=== PATIENT | female | born 1985 | race Caucasian/White ===

== ENCOUNTER → 2016-07-25 | Outpatient (CLI) | payer MEDICAID ==
[~2016-07-25] MED LIST: ACHYD1T PO; AGM875T PO; ALBU8.5H2 IH; ALPR0.5T PO; AMOX500C2 PO; AMOX875T2 PO; AZIT-21 PO; BENZ-13 PO; BIRTH CONTROL PO; CLOT45CR46 TOP; D-ME118S33 PO; DCS100C PO; DIET75TA31 PO; FLUC100T PO; FLUC200T45 PO; Flexeril PO; GUAI120L29 PO; HYDR-2856 PO; HYDR-3720 PO; IBP600T1 PO; Ibuprofen PO; LEVO500T69 PO; MINO100C2 PO; NAPR-243 PO; NAPR500T PO; NITR100C3 PO; NITR50CA4 PO; NS.65NA45; OMEP20CA6 PO; ONDN4T PO; OSLT75CRX PO; OXYC-197 PO; PANT40TA2 PO; PHEN100T26 PO; PHEN200T27 PO; PNT40TEC PO; PRCD5U PO; PRD20T PO; PRED20TA PO; PSEU120T50 PO; SUCR1TAB23 PO; SULF1TAB34 PO; SULF1TAB35 PO; SULF1TAB38 PO; TRAM50TA2 PO; TRM50T PO
--- NOTE | 2016-07-25 22:46 | Diagnostic Imaging Report ---
EXAMINATION: Bilateral breast ultrasound. INDICATION: Family history of breast cancer. COMPARISON: 07/07/15. FINDINGS: The retroareolar region and the four quadrants of each breast were scanned. There is minimal duct ectasia in the retroareolar region of the right breast with no other abnormality seen. IMPRESSION: Essentially negative exam. No suspicious lesion. ACR BI-RADS Category 2: Benign findings. Result letter will be mailed to the patient. Note: At least 10% of breast cancer is not imaged by mammography. Dictated by: Dictated on workstation # [id number]
== END ==
LOC: RAD 09:43
PROVIDERS: ATTEND Nurse Practitioner Family
DX: R92.8 Other abnormal and inconclusive findings on diagnostic imaging of breast (principal); Z80.3 Family history of malignant neoplasm of breast

== ENCOUNTER → 2016-08-20 | Outpatient (CLI) | payer MEDICAID ==
[~2016-08-20] MED LIST changes: +BARIUM SUSPENSION 105% (LIQUID POLIBAR PLUS) 240 ML/DOSE PO ONE; +BARIUM SUSPENSION 60% (LIQUID EZ PAQUE) 240 ML DOSE PO ONE
--- NOTE | 2016-08-20 11:55 | Diagnostic Imaging Report ---
EXAMINATION: Barium swallow double-contrast. INDICATION: Dysphagia Fluoroscopy time: 26 seconds TECHNIQUE: Decorator Consultant image of the chest was performed. Subsequently, the patient was given gas forming granules for oral ingestion followed by thick and thin barium to drink. Swallowing through the esophagus was observed with fluoroscopy and overhead images, as well as multiple spot images in the upright and prone positions, were taken. FINDINGS: Decorator Consultant image of the chest demonstrate no significant abnormality. No significant reflux is seen during the study. Normal motility seen. The esophagus is normal in caliber and contour. There is no mucosal abnormality, diverticulum or filling defect to suggest a mass. There is no hiatal hernia demonstrated. IMPRESSION: Unremarkable barium swallow. Dictated by: Dictated on workstation # [id number]
== END ==
LOC: RAD 10:44
PROVIDERS: ATTEND Nurse Practitioner Family
DX: R13.13 Dysphagia, pharyngeal phase (principal)
CPT/HCPCS: 74220

== ENCOUNTER 2016-09-06 05:43 | Outpatient (CLI) | payer MEDICAID ==
[~2016-09-06] VITALS: Ht 157.5 cm; Wt 81.9 kg
[~2016-09-06 05:43] MED LIST changes: -BARIUM SUSPENSION 105% (LIQUID POLIBAR PLUS) 240 ML/DOSE PO ONE; -BARIUM SUSPENSION 60% (LIQUID EZ PAQUE) 240 ML DOSE PO ONE; -PANT40TA2 PO
== END 2016-09-06 16:22 ==
LOC: PREOP 05:43
PROVIDERS: ATTEND Surgery
DX: Z01.818 Encounter for other preprocedural examination (principal); R13.14 Dysphagia, pharyngoesophageal phase

== ENCOUNTER 2016-09-10 07:56 | Day surgery (SDC) | payer MEDICAID ==
[~2016-09-10] VITALS: Ht 157.5 cm; Wt 81.9 kg
[2016-09-10] MEDS ORDERED: FLUMAZENIL (ROMAZICON) 0.1 MG/ML 5 ML VIAL INJ PRN (08:15)
[2016-09-10] MEDS ORDERED: NS IV 500 ML 500 ML IV ONE (08:15)
[2016-09-10] MEDS ORDERED: NALOXONE 0.4 MG/ML 1 ML (NARCAN) VIAL IVP PRN (08:15)
[2016-09-10 08:20] VITALS: BP 124/71
--- NOTE | 2016-09-10 08:29 | Conscious Sedation/ASA ---
Conscious Sedation Pre-Proced ASA Class: 2 Airway Mallampati Classification: ([place] appropriate class) I. II. III, IV Lungs Heart ASA score ASA 1: a normal healthy patient ASA 2: a patient with a mild systemic disease (mid diabetes, controlled hypertension, obesity ASA 3: a patient with a severe systemic disease that limits activity (angina , COPD, prior Myocardial infarction) ASA 4: a patient with an incapacitating disease that is a constant threat to life (CHF, renal failure) ASA 5: a moribund patient not expected to survive 24 hrs. (ruptured aneurysm) ASA 6: a declared brain patient whose organs are being harvested. For emergent operations, add the letter E after the classification Grade 2 Sedation Plan: Discussed options with patient/fam Note The patient is an appropriate candidate to undergo the planned procedure, sedation, and anesthesia. The patient immediately re-assessed prior to indication. KRISTIE GRACE MD Sep 10, 2016 8:28 am
[2016-09-10] MEDS ORDERED: MIDAZOLAM 2 MG/2 ML (VERSED) VIAL ONE ×4 (09:59→10:00)
[2016-09-10] MEDS ORDERED: fentaNYL INJECTION 100 MCG/2 ML AMP ONE (09:59)
[2016-09-10] MEDS ORDERED: HURRICAINE EXT TUBE (BENZOCAINE) ONE (10:00)
[2016-09-10] MEDS: fentaNYL INJECTION 100 MCG/2 ML AMP IVP PRN ×2 (10:06→10:08)
[2016-09-10] MEDS: MIDAZOLAM 2 MG/2 ML (VERSED) VIAL IVP PRN ×4 (10:07→10:13)
--- NOTE | 2016-09-10 10:20 | Endoscopy Procedure Report ---
Endoscopy Report Date: Sep 10, 2016 Preoperative Diagnosis: dysphagia Study Performed: Upper Endoscopy Procedure Instrument: Endoscope Endo Procedure/Findings Findings 1.: Hiatal Hernia, Stricture Recommendations: Recommendations: 1.: Prescription for Copy Copies To 1: SYDNEY CLARK XAVIER M MD Sep 10, 2016 10:20 am
[2016-09-10] MEDS ORDERED: PANT40TA2 PO (10:21)
--- NOTE | 2016-09-10 10:22 | Discharge Inst-Simple/Standard ---
Discharge Inst-Standard Discharge Medications New, Converted or Re-Newed RX: RX on Chart Patient Instructions/Follow Up Plan of Care/Instructions/FU: follow-up with her primary Activity as Tolerated: Yes Discharge Diet: No Restrictions KRISTIE GRACE MD Sep 10, 2016 10:22 am
[2016-09-10 10:45] VITALS: BP 115/74
[2016-09-10] MEDS ORDERED: HURRICAINE EXT TUBE (BENZOCAINE) XX ONE (10:45)
[2016-09-10 11:15] VITALS: BP 110/60
[2016-09-10 11:24] VITALS: BP 110/60
--- NOTE | 2016-09-10 12:40 | OPERATIVE REPORT ---
PROCEDURE PHYSICIAN: KRISTIE GRACE DATE OF PROCEDURE: 09/10/2016 PROCEDURES: 1. Upper GI endoscopy. 2. Balloon dilatation of esophageal stricture. SURGEON: Dr. Grace. INDICATION FOR THE PROCEDURE: This lady came in for an upper endoscopy to evaluate progressive dysphagia. In addition, she also reported symptoms of reflux disease. Informed consent was obtained after reviewing the procedure in detail. DESCRIPTION OF PROCEDURE: She was placed in left lateral decubitus position and her vital signs were monitored. Conscious sedation was achieved using Versed and fentanyl. The flexible gastroscope was then introduced into down the esophagus, past the stomach, into the proximal duodenum. FINDINGS: ESOPHAGUS: Hiatal hernia with a peptic stricture at the distal end. It was dilated to 20 mm with a balloon. STOMACH AND DUODENUM: Were normal. She tolerated the procedure well and was taken back to the nursing area in a stable condition. IMPRESSION: 1. Dysphagia due to a peptic stricture. 2. Balloon dilatation completed. 3. To continue proton pump inhibitor therapy. Job ID: [id number] Dictated Date: 09/10/2016 10:18:49 Garde Manger Date: 09/10/2016 12:37:58 / joseline DHILLON
== END 2016-09-10 11:25 | disposition home or self-care (01) ==
LOC: ENDO 07:56
PROVIDERS: ATTEND Surgery
DX: K22.2 Esophageal obstruction (principal); K44.9 Diaphragmatic hernia without obstruction or gangrene

== ENCOUNTER 2017-09-24 17:34 | Emergency (ER) | payer MEDICAID, OTHER ==
[~2017-09-24] VITALS: Ht 157.5 cm; Wt 81.6 kg
[~2017-09-24 17:34] MED LIST changes: +NAPR-1071 PO; -NAPR500T PO; +PANT40TA2 PO
--- OUTSIDE RECORDS SUMMARY | 2017-09-24 17:40 | XMS REPORT ---
Author Author RUBY VARGAS [facility] Address [address] [place] [address] Care Team Providers Care Prospect Manager Name Role Phone RUBY VARGAS Unavailable PROBLEMS Type Condition ICD9-CM Code PEF34-HI Code Onset Dates Condition Status SNOMED Code Problem Mixed hyperlipidemia E78.2 Active 249719642 Problem Pharyngeal dysphagia R13.13 Active 97205294399505 Problem Depression, unspecified depression type F32.9 Active 14261533 Problem History of vitamin D deficiency Z86.39 Active 809847659 Problem Abnormal ultrasound of breast R92.8 Active 16209795965294541 Problem Family history of breast cancer in mother Z80.3 Active 890040996 ALLERGIES Substance Reaction Event Type Date Status Levofloxacin Unknown Drug Allergy Jul, Active SOCIAL HISTORY Never Assessed PLAN OF CARE Activity Details Follow Up 4 Weeks Reason:dysphagia VITAL SIGNS Height 62 in 2016-08-15 Weight 194.0 lbs 2016-08-15 Temperature 98.1 degrees Fahrenheit 2016-08-15 Heart Rate 78 bpm 2016-08-15 BMI 35.48 kg/m2 2016-08-15 Blood pressure systolic 128 mmHg 2016-08-15 Blood pressure diastolic 78 mmHg 2016-08-15 MEDICATIONS Medication Instructions Dosage Frequency Start Date End Date Duration Status Omeprazole 20 MG Orally Once a day 1 capsule 24h Nov, 30 day(s ) Active Cholecalciferol 76045 UNIT Orally once weekly 1 capsule Feb, Active Flonase 50 MCG/ACT Nasally 2 times a day 1 spray in each nostril 12h Oct Active RESULTS Name Result Date Reference Range UA LONG DIP (IN HOUSE) 2016-08-15 Lot # [id number] Exp date Clarity Clear Color Yellow Odor None GLU Negative SEBASTIAN Negative KET Negative SG 1.025 BLO Negative pH 5.5 Protein Negative URO 0.2 NIT Negative SHRUTHI Negative Lot # Exp date TSH 2016-08-15 TSH 2.940 0.450-4.500 LIPID PANEL 2016-08-15 Cholesterol, Total 260 100-199 Triglycerides 235 0-149 HDL Cholesterol 46 >39 VLDL Cholesterol Danish 47 5-40 LDL Cholesterol Calc 167 0-99 Comment: Barium Swallow 2016-08-20 PROCEDURES Procedure Date Ordered Result Body Site URINALYSIS, AUTO, W/O SCOPE August 15, 2016 LAB NOT BILLED BY [facility] August 15, 2016 VENIPUNCT, ROUTINE* August 15, 2016 IMMUNIZATIONS No Known Immunizations MEDICAL (GENERAL) HISTORY Type Description Date Medical History Esophageal reflux Medical History Esophageal reflux Medical History Calculus of kidney Medical History Cyst of left breast Surgical History gallbladder removal 2011 Surgical History hysterectomy 10/2013 Surgical History D&C 11/2012 Surgical History lithotripsy
--- OUTSIDE RECORDS SUMMARY | 2017-09-24 17:40 | XMS REPORT ---
Author Author RUBY VARGAS [facility] Address [address] [place] [address] Care Team Providers Care Brazing Machine Tender Name Role Phone RUBY VARGAS Unavailable PROBLEMS Type Condition ICD9-CM Code [id number] Code Onset Dates Condition Status SNOMED Code Problem Mixed hyperlipidemia E78.2 Active 603355822 Problem Pharyngeal dysphagia R13.13 Active 65798028512379 Problem Depression, unspecified depression type F32.9 Active 77295671 Problem History of vitamin D deficiency Z86.39 Active 299345687 Problem Abnormal ultrasound of breast R92.8 Active 71921889862867601 Problem Family history of breast cancer in mother Z80.3 Active 328129483 ALLERGIES Substance Reaction Event Type Date Status Levofloxacin Unknown Drug Allergy Jun, Active SOCIAL HISTORY Never Assessed PLAN OF CARE Activity Details Follow Up pending ua in 2 weeks or if SPARKS not improving Reason: VITAL SIGNS Height 62 in 2016-07-17 Weight 197.5 lbs 2016-07-17 Temperature 97.7 degrees Fahrenheit 2016-07-17 Heart Rate 72 bpm 2016-07-17 Respiratory Rate 18 2016-07-17 BMI 36.12 kg/m2 2016-07-17 Blood pressure systolic 119 mmHg 2016-07-17 Blood pressure diastolic 76 mmHg 2016-07-17 MEDICATIONS Medication Instructions Dosage Frequency Start Date End Date Duration Status Diflucan 150 MG Orally Once a day 1 tablet 24h Jun, 1 dose Active RESULTS Name Result Date Reference Range UA LONG DIP (IN HOUSE) 2016-07-17 Lot # [id number] Exp date Clarity Clear Color Yellow Odor None GLU Negative SEBASTIAN Negative KET Negative SG 1.025 BLO 1+ pH 5.0 Protein Negative URO 0.2 NIT Negative SHRUTHI Negative Lot # Exp date Ultrasound : Breast(s), Both 2016-07-25 PROCEDURES Procedure Date Ordered Result Body Site URINALYSIS, AUTO, W/O SCOPE Jul 17, 2016 THER/PROPH/DIAG INJ, SC/IM Jul 17, 2016 TORADOL (IM) 60 MG/2ML (UP TO 15 MG) Jul 17, 2016 IMMUNIZATIONS Vaccine Route Administration Date Status TORADOL (IM) 60 MG/2ML (UP TO 15 MG) IM Intramuscular Jul 17, 2016 Administered MEDICAL (GENERAL) HISTORY Type Description Date Medical History Esophageal reflux Medical History Esophageal reflux Medical History Calculus of kidney Medical History Cyst of left breast Surgical History gallbladder removal 2011 Surgical History hysterectomy 10/2013 Surgical History D&C 11/2012 Surgical History lithotripsy
--- OUTSIDE RECORDS SUMMARY | 2017-09-24 17:40 | XMS REPORT ---
Author Author RUBY VARGAS [facility] Address [address] [place] [address] Care Team Providers Care Fur Repairer Name Role Phone RUBY VARGAS Unavailable PROBLEMS Type Condition ICD9-CM Code [id number] Code Onset Dates Condition Status SNOMED Code Problem Mixed hyperlipidemia E78.2 Active 212247450 Problem Pharyngeal dysphagia R13.13 Active 27043820680490 Problem Depression, unspecified depression type F32.9 Active 46819767 Problem History of vitamin D deficiency Z86.39 Active 205986108 Problem Abnormal ultrasound of breast R92.8 Active 82837405937795652 Problem Family history of breast cancer in mother Z80.3 Active 532595920 ALLERGIES No Information SOCIAL HISTORY Never Assessed PLAN OF CARE VITAL SIGNS MEDICATIONS Medication Instructions Dosage Frequency Start Date End Date Duration Status Fish Oil 1000 MG Orally at bedtime 2 capsules Jul, 30 days Active RESULTS No Results PROCEDURES No Known procedures IMMUNIZATIONS No Known Immunizations MEDICAL (GENERAL) HISTORY Type Description Date Medical History Esophageal reflux Medical History Esophageal reflux Medical History Calculus of kidney Medical History Cyst of left breast Surgical History gallbladder removal 2011 Surgical History hysterectomy 10/2013 Surgical History D&C 11/2012 Surgical History lithotripsy
--- NOTE | 2017-09-24 19:33 | ED Integumentary General ---
General Chief Complaint: Skin/Wound Problems Stated Complaint: SUNBURN Nursing Triage Note: pt c/o sun exposure Saturday et Saturday. Batres to arms, face et legs. c/o blisters, nausea, et headaches. Source: patient Exam Limitations: no limitations History of Present Illness Date Seen by Provider: September 24, 2017 Time Seen by Provider: 19:14 Initial Comments Here with report of sunburn to her face and anterior legs. She was sitting at a softball game on Saturday and Saturday in shorts. She reports wearing 50 block sunscreen to those areas and noted batres on Saturday night. Concerned because she has swelling and pain to those areas. She's been using aloe vera as well as Tylenol and ibuprofen and that is only helping a little. She had spoken with somebody else and they are was some concern about possibility for infection. Timing/Duration: getting worse, other (3-4 days ago) Severity: moderate Location: face, extremities Possible Cause: other (sunburn) Associated Symptoms: blisters, edema, flushing Allergies and Home Medications Allergies Coded Allergies: levofloxacin (Unverified Allergy, Intermediate, 08/26/13) RASH AND ITCHING morphine (Unverified Adverse Reaction, Mild, NAUSEA, 08/26/13) Home Medications Pantoprazole Sodium 40 Mg Tablet.dr, 40 MG PO DAILY Prescribed by: KRISTIE GRACE on 09/10/16 1021 Patient Home Medication List Home Medication List Reviewed: Yes Constitutional: see HPI; No chills, No fever Respiratory: no symptoms reported Cardiovascular: no symptoms reported Gastrointestinal: no symptoms reported Skin: see HPI, change in color, lesions Past Zspfzwz-Jbwhwq-Dwgwnx Hx Past Med/Social Hx: Reviewed Nursing Past Med/Soc Hx Patient Social History Alcohol Use: Denies Use Recreational Drug Use: No Smoking Status: Former Smoker Former Smoker, Quit: Sep 06, 2001 Recent Foreign Travel: No Contact w/Someone Who Travel: No Recent Infectious Disease Expo: No Recent Hopitalizations: No Seasonal Allergies Seasonal Allergies: Yes Past Medical History Surgeries: Yes Breast, Gallbladder, Hysterectomy Reproductive Disorders: No Female Reproductive Disorders: Denies, Endometriosis, Ovarian Cyst GRIPS History: Hysterectomy HIV/AIDS: No Genitourinary: Yes Kidney Stones, UTI-Chronic Gastrointestinal: Yes Gastroesophageal Reflux Adverse Reaction/Blood Tranf: No Family Medical History Reviewed Nursing Family Hx Cancer 19 MOTHER (BREAST ) Family history: Hypertension G8 BROTHER No Pertinent Family Hx Physical Exam Vital Signs Vital Signs - First Documented 09/24/17 18:39 Temp 95.4 Pulse 80 Resp 18 B/P (MAP) 140/82 (101) Capillary Refill : Less Than 3 Seconds General Appearance: WD/WN, no apparent distress HEENT: other (sunburn to the forehead and face noted with dryness and healing blister to the nose and forehead. Mild swelling noted. Consistent with first- degree burn.) Neck: full range of motion, supple Cardiovascular: regular rate, rhythm, no murmur Respiratory: lungs clear, normal breath sounds Extremities: normal range of motion, swelling (sunburn noted to the lower extremities anterior portion from mid thighs down to ankles. No blistering noted. Mild swelling noted.), other Neurologic/Psychiatric: alert, oriented x 3 Skin: warm/dry, other (erythema and sunburn as noted above to areas as discussed above) Progress/Results/Core Measures Vital Signs/I&O 09/24/17 18:39 Temp 95.4 Pulse 80 Resp 18 B/P (MAP) 140/82 (101) Blood Pressure Mean: 101 Progress Note : Progress Note Seen and evaluated. Discussed sunburn and therapy. Discharged home with return precautions. Patient verbalize understanding instructions and agreement with plan. Departure Impression Primary Impression: Sunburn of first degree Disposition: 01 HOME, SELF-CARE Condition: Stable Departure-Patient Inst. Decision time for Depature: 19:32 Referrals: SYDNEY CLARK DO (PCP) Primary Care Physician RUBY VARGAS (Family) Primary Care Physician Patient Instructions: [place] (DC) Add. Discharge Instructions: All discharge instructions reviewed with patient and/or family. Voiced understanding. You may continue aloe vera gel to areas of concern as needed. You may take ibuprofen 800 mg every 8 hours as needed for pain. You may take Tylenol/ acetaminophen 1000 mg every 8 hours as needed for pain. Drink plenty of fluids. Elevate legs when possible. This should heal over the next week to 2 weeks. You will peel. Return for worse pain, fever, vomiting, weakness, breathing problems or other concerns as needed. It is very important that he protect herself from further sunburns using high-quality sunblock or cover with clothing. MANJULA FLETCHER MD September 24, 2017 19:33
[2017-09-24 19:36] VITALS: BP 0/0
== END 2017-09-24 19:36 | disposition home or self-care (01) ==
LOC: EDUNIT# 17:34 → ER 17:36
DX: L55.0 Sunburn of first degree (principal); K21.9 Gastro-esophageal reflux disease without esophagitis; Z87.442 Personal history of urinary calculi; Z88.1 Allergy status to other antibiotic agents; Z88.5 Allergy status to narcotic agent; Z87.891 Personal history of nicotine dependence; Z90.710 Acquired absence of both cervix and uterus; Z80.3 Family history of malignant neoplasm of breast
CPT/HCPCS: 99282

== ENCOUNTER → 2018-03-28 | Outpatient (CLI) | payer OTHER ==
[~2018-03-28] MED LIST changes: -BENZ-13 PO; +BENZ100C18 PO; -OXYC-197 PO; +OXYC1TAB87 PO
--- NOTE | 2018-03-28 17:34 | Diagnostic Imaging Report ---
INDICATION: Routine screening. No prior mammograms are available for comparison. This is a baseline study. 2-D and 3-D bilateral screening mammography was performed with computer-aided detection (CAD) system. FINDINGS: Scattered fibroglandular densities are identified bilaterally. Postsurgical changes in the retroareolar left breast are noted. No mass or malignant-appearing microcalcifications are seen. Axillae are unremarkable. IMPRESSION: No mammographic features suspicious for malignancy are identified. ACR BI-RADS Category 2: Benign findings. Result letter will be mailed to the patient. Note: At least 10% of breast cancer is not imaged by mammography. Dictated by: Dictated on workstation # [id number]
== END ==
LOC: RAD 11:12
PROVIDERS: ATTEND Nurse Practitioner Primary Care
DX: Z12.31 Encounter for screening mammogram for malignant neoplasm of breast (principal)
CPT/HCPCS: 77067

== ENCOUNTER 2018-04-11 06:13 | Outpatient (CLI) | payer OTHER ==
[~2018-04-11] VITALS: Ht 157.5 cm; Wt 90.7 kg
[2018-04-11] MEDS ORDERED: CHOL500049 PO (14:45)
[2018-04-11] MEDS ORDERED: TAMS0.4C2 PO (14:45)
[2018-04-11] MEDS ORDERED: RANI150T46 PO (14:45)
[2018-04-11] MEDS ORDERED: PHEN37.53 PO (14:45)
[2018-04-11] MEDS ORDERED: SULF1TAB35 PO (14:45)
== END 2018-04-11 14:52 | disposition home or self-care (01) ==
LOC: PREOP 06:13
PROVIDERS: ATTEND Urology
DX: Z01.818 Encounter for other preprocedural examination (principal)

== ENCOUNTER 2018-04-15 07:39 | Day surgery (SDC) | payer OTHER ==
[~2018-04-15] VITALS: Ht 157.5 cm; Wt 90.7 kg
[~2018-04-15 07:39] MED LIST changes: +CHOL500049 PO; +PHEN37.53 PO; +RANI150T46 PO; +TAMS0.4C2 PO
[2018-04-15 08:00] VITALS: BP 137/81
[2018-04-15] MEDS ORDERED: CATHETER FLUSH 10 ML SYR IV PRN (08:00)
[2018-04-15] MEDS ORDERED: cefTRIAXone FOR IV USE 1,000 MG in NS (IVPB) 50 ML IV ONE (08:00)
--- OUTSIDE RECORDS SUMMARY | 2018-04-15 08:02 | XMS REPORT ---
Author Author KIP ROJAS [facility] Address [address] [place] [address] Care Team Providers Care Windchill Administrator Name Role Phone KIP ROJAS Unavailable PROBLEMS Type Condition ICD9-CM Code LBA90-MI Code Onset Dates Condition Status SNOMED Code Problem Depression, unspecified depression type F32.9 Active 56317432 Problem Thyroiditis E06.9 Active 90605468 Problem Vitamin D deficiency E55.9 Active 68801340 Problem Gastroesophageal reflux disease, esophagitis presence not specified K21.9 Active 255889045 Problem Abnormal ultrasound of breast R92.8 Active 34793605755479802 Problem Family history of breast cancer in mother Z80.3 Active 429631595 Problem Mixed hyperlipidemia E78.2 Active 483604843 Problem Pharyngeal dysphagia R13.13 Active 56216176693697 ALLERGIES No Information ENCOUNTERS Encounter Location Date Diagnosis [place] [id number] [address] Feb, Thyroiditis E06.9 [facility] [id number] [place] [address] Feb, Vitamin D deficiency E55.9 [facility] [id number] [place] [address] Feb, [facility] [id number] [place] [address] Feb, [facility] [id number] [place] [address] Feb, Vitamin D deficiency E55.9 and Thyroid pain E07.89 [facility] [id number] [place] [address] Feb, Screening for breast cancer Z12.31 ; Weight loss counseling , encounter for Z71.3 ; Vitamin D deficiency E55.9 ; Screening for thyroid disorder Z13.29 ; Screening for diabetes mellitus Z13.1 ; Thyroid pain E07.89 ; Gastroesophageal reflux disease, esophagitis presence not specified K21.9 and Depression, unspecified depression type F32.9 [place] [id number] [place] [address] Dec, [address] [address] Dec, Left foot pain M79.[address] [address] Jul, Pharyngeal dysphagia R13.[address] [address] Jul, Mixed hyperlipidemia E78.[address] [address] Jul, Hematuria R31.9 ; History of renal calculi Z87.442 ; Heartburn R12 ; Pharyngeal dysphagia R13.13 and General medical exam Z00.[address] [address] Jun, Dysuria R30.0 ; Headache around the eyes R51 ; Hematuria R31.9 ; History of renal calculi Z87.442 ; Change in vision H53.9 ; Family history of breast cancer in mother Z80.3 and Abnormal ultrasound of breast R92.8 [place] [id number] [place] [address] Feb, Depression, unspecified depression type F32.[address] [address] Feb, [address] [address] Feb, Depression, unspecified depression type F32.9 [place] [address] [place] [address] Feb, Hair loss L65.9 ; Fatigue, unspecified type R53.83 ; Depression, unspecified depression type F32.9 and History of vitamin D deficiency Z86.39 [facility] [address] [place] [address] Nov, [facility] [address] [place] [address] Jun, [facility] [id number] [address] May, Family history of breast cancer in mother V16.3 [place] [id number] [place] [address] Jan, Weight gain 783.1 [place] [address] [address] Dec, Weight gain 783.1 [facility] [id number] [place] [address] Nov, Family history of breast cancer in mother V16.3 [place] [address] [address] Nov, Family history of breast cancer V16.3 [facility] [address] [address] Nov, Family history of breast cancer in mother V16.3 and Weight gain 783.1 [facility] [address] [address] Nov, [place] [id number] [address] Nov, [facility] [address] [address] Nov, [facility] [address] [place] [address] Nov, Heart burn 787.1 ; Arthralgia 719.40 ; Weight gain 783.1 and Fatigue 780.79 [facility] [id number] [place] [address] Oct, Sinusitis 473.9 and Otalgia of right ear 388.70 [facility] [id number] [place] [address] Aug, [facility] [id number] [place] [address] Aug, [facility] [id number] [place] [address] Jul, [facility] [id number] [place] [address] Jul, [facility] [id number] [place] [address]- [address] Jul, [facility] [id number] [place] [address] Jul, [facility] [id number] [place] [address] May, [facility] [id number] [place] [address] May, [facility] [id number] [place] [address] Apr, [facility] [id number] [place] [address] Apr, [facility] [id number] [place] [address] Mar, [facility] [id number] [place] [address] Mar, IMMUNIZATIONS No Known Immunizations SOCIAL HISTORY Never Assessed REASON FOR VISIT Refill request PLAN OF CARE VITAL SIGNS MEDICATIONS Medication Instructions Dosage Frequency Start Date End Date Duration Status Cholecalciferol 75457 UNIT 1 tablet Feb, May, 30 day( s) Active RESULTS No Results PROCEDURES No Known procedures INSTRUCTIONS MEDICATIONS ADMINISTERED No Known Medications MEDICAL (GENERAL) HISTORY Type Description Date Medical History esophageal stricture Medical History Esophageal reflux Medical History Calculus of kidney Medical History Cyst of left breast Surgical History gallbladder removal 2011 Surgical History hysterectomy 10/2013 Surgical History D&C 11/2012 Surgical History lithotripsy Surgical History esophageal stricture- stretching; Dr. Witt
--- OUTSIDE RECORDS SUMMARY | 2018-04-15 08:02 | XMS REPORT ---
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 Phone KIP ROJAS Unavailable PROBLEMS Type Condition ICD9-CM Code [id number] Code Onset Dates Condition Status SNOMED Code Problem Depression, unspecified depression type F32.9 Active 22162319 Problem Thyroiditis E06.9 Active 83574977 Problem Vitamin D deficiency E55.9 Active 36389238 Problem Gastroesophageal reflux disease, esophagitis presence not specified K21.9 Active 026848135 Problem Abnormal ultrasound of breast R92.8 Active [id number] Problem Family history of breast cancer in mother Z80.3 Active 599197874 Problem Mixed hyperlipidemia E78.2 Active 426534679 Problem Pharyngeal dysphagia R13.13 Active [id number] ALLERGIES No Information ENCOUNTERS Encounter Location Date Diagnosis [place] [address] [address] Feb, Thyroiditis E06.9 [facility] [id number] [place] [address] 64900- 7979 Feb, Vitamin D deficiency E55.9 [facility] [id number] [place] [address] 51761- 8605 Feb, [facility] [id number] [place] [address] 46867- 0649 Feb, [facility] [id number] [place] [address] 23954- 2029 Feb, Vitamin D deficiency E55.9 and Thyroid pain E07.89 [facility] [id number] [place] [address] 39790- 0060 Feb, Screening for breast cancer Z12.31 ; Weight loss counseling , encounter for Z71.3 ; Vitamin D deficiency E55.9 ; Screening for thyroid disorder Z13.29 ; Screening for diabetes mellitus Z13.1 ; Thyroid pain E07.89 ; Gastroesophageal reflux disease, esophagitis presence not specified K21.9 and Depression, unspecified depression type F32.9 [place] [id number] [place] [address] 66372- 5237 Dec, [address] [address]- 7862 Dec, Left foot pain M79.[address] 53263- 4018 Jul, Pharyngeal dysphagia R13.[address] 28696- 2223 Jul, Mixed hyperlipidemia E78.[address] 48729- 2631 Jul, Hematuria R31.9 ; History of renal calculi Z87.442 ; Heartburn R12 ; Pharyngeal dysphagia R13.13 and General medical exam Z00.[address] 6[address]36- 3484 Jun, Dysuria R30.0 ; Headache around the eyes R51 ; Hematuria R31.9 ; History of renal calculi Z87.442 ; Change in vision H53.9 ; Family history of breast cancer in mother Z80.3 and Abnormal ultrasound of breast R92.8 [place] [id number] [place] [address] 04694- 0283 Feb, Depression, unspecified depression type F32.[address] 86523- 4567 Feb, [address] 23884- 3244 Feb, Depression, unspecified depression type F32.9 [place] [address] [place] [address] 48[address] Feb, Hair loss L65.9 ; Fatigue, unspecified type R53.83 ; Depression, unspecified depression type F32.9 and History of vitamin D deficiency Z86.39 [facility] [address] [address] Nov, [facility] [address] [address] Jun, [facility] [id number] [address] 9559 May, Family history of breast cancer in mother V16.3 [place] [id number] [place] [address] 029997- 8966 Jan, Weight gain 783.1 [place] [address], [place] [address]- 6076 Dec, Weight gain 783.1 [facility] [address] [place] [address] 75048- 6510 Nov, Family history of breast cancer in mother V16.3 [place] [address], [place] [address] 0897 Nov, Family history of breast cancer V16.3 [facility] [address], [place] [address]- 8974 Nov, Family history of breast cancer in mother V16.3 and Weight gain 783.1 [facility] [address], [place] [address]- 9223 Nov, [place] [address] [id number] [address]- 8191 Nov, [facility] [address] [address] Nov, [facility] [address], [place] [address]- 7432 Nov, Heart burn 787.1 ; Arthralgia 719.40 ; Weight gain 783.1 and Fatigue 780.79 [facility] [id number] [place] [address] 75726- 7989 Oct, Sinusitis 473.9 and Otalgia of right ear 388.70 [facility] [id number] [place] [address] 86906- 4851 Aug, [facility] [address] [id number] [place] [address] 08209- 7574 Aug, [facility] [address] [id number] [place] [address] 74287- 8832 Jul, [facility] [address] [id number] [place] [address] 148244- 0465 Jul, [facility] [address] [id number] [place] [address] 79085- 4760 Jul, [facility] [address] [id number] [place] [address] 058299- 3622 Jul, [facility] [address] [id number] [place] [address] 78533- 8649 May, [facility] [id number] [place] [address] 765081- 6019 May, [facility] [id number] [place] [address] 02713- 8168 Apr, [facility] [id number] [place] [address] 462374- 3515 Apr, [facility] [address] [id number] [place] [address] 70250- 0786 Mar, [facility] [id number] [place] [address] 903101- 9367 Mar, IMMUNIZATIONS No Known Immunizations SOCIAL HISTORY Never Assessed REASON FOR VISIT PLAN OF CARE VITAL SIGNS MEDICATIONS Unknown Medications RESULTS No Results PROCEDURES No Known procedures [...]
--- OUTSIDE RECORDS SUMMARY | 2018-04-15 08:02 | XMS REPORT ---
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 Phone KIP ROJAS Unavailable PROBLEMS Type Condition ICD9-CM Code [id number] Code Onset Dates Condition Status SNOMED Code Problem Depression, unspecified depression type F32.9 Active 26243041 Problem Thyroiditis E06.9 Active 42165767 Problem Vitamin D deficiency E55.9 Active 62425057 Problem Gastroesophageal reflux disease, esophagitis presence not specified K21.9 Active 768459483 Problem Abnormal ultrasound of breast R92.8 Active 78744869534873927 Problem Family history of breast cancer in mother Z80.3 Active 870331935 Problem Mixed hyperlipidemia E78.2 Active 364486543 Problem Pharyngeal dysphagia R13.13 Active [id number] ALLERGIES No Information ENCOUNTERS Encounter Location Date Diagnosis [place] [address] [address]- [address]66 Mar, Thyroiditis E06.9 [facility] [address] [id number] [place] [address] 74182- 3346 Feb, Thyroiditis E06.9 [facility] [id number] [place] [address] 34002- 2695 Feb, Vitamin D deficiency E55.9 [facility] [address] [id number] [place] [address] 12103- 9563 Feb, [facility] [address] 58569- 6814 Feb, [facility] [address] [place] [address] [id number] [place] [address] 22325- 0176 Feb, Vitamin D deficiency E55.9 and Thyroid pain E07.89 [facility] [address] 53934- 4554 Feb, Screening for breast cancer Z12.31 ; Weight loss counseling , encounter for Z71.3 ; Vitamin D deficiency E55.9 ; Screening for thyroid disorder Z13.29 ; Screening for diabetes mellitus Z13.1 ; Thyroid pain E07.89 ; Gastroesophageal reflux disease, esophagitis presence not specified K21.9 and Depression, unspecified depression type F32.[address] 26357- 6150 Dec, [address] 54426- 4432 Dec, Left foot pain M79.[address] 87832- 8255 Jul, Pharyngeal dysphagia R13.[address] 03001- 6199 Jul, Mixed hyperlipidemia E78.[address] 98361- 1883 Jul, Hematuria R31.9 ; History of renal calculi Z87.442 ; Heartburn R12 ; Pharyngeal dysphagia R13.13 and General medical exam Z00.[address] 03988- 0879 Jun, Dysuria R30.0 ; Headache around the eyes R51 ; Hematuria R31.9 ; History of renal calculi Z87.442 ; Change in vision H53.9 ; Family history of breast cancer in mother Z80.3 and Abnormal ultrasound of breast R92.[address] 60950- 0067 Feb, Depression, unspecified depression type F32.[address] 12259- 1927 14 Feb, [address] 85104- 9562 Feb, Depression, unspecified depression type F32.9 [facility] [address], [place] [address]- 84[address] Feb, Hair loss L65.9 ; Fatigue, unspecified type R53.83 ; Depression, unspecified depression type F32.9 and History of vitamin D deficiency Z86.39 [facility] [address], [place] [address] Nov, [facility] [address], [place] [address]- 9731 Jun, [facility] [address] [place] [id number] [place] [address] 70756- 3460 May, Family history of breast cancer in mother V16.3 [place] [address], [place] [address]- 6373 Jan, Weight gain 783.1 [facility] [address], [place] [address]- 1694 Dec, Weight gain 783.1 [facility] [address] [place] [id number] [address]- 8410 Nov, Family history of breast cancer in mother V16.3 [facility] [address], [place] [address]- 1959 Nov, Family history of breast cancer V16.3 [facility] [address], [place] [address]- 9996 Nov, Family history of breast cancer in mother V16.3 and Weight gain 783.1 [facility] [address], [place] [address]- 9897 Nov, [facility] [address], [place] [address]- 9113 Nov, [facility] [address], [place] [address]- 3843 Nov, [facility] [address], [place] [address]- 0595 Nov, Heart burn 787.1 ; Arthralgia 719.40 ; Weight gain 783.1 and Fatigue 780.79 [facility] [address], [place] [address]- 3736 Oct, Sinusitis 473.9 and Otalgia of right ear 388.70 [facility] [address], [place] [address]- 7508 Aug, [facility] [address] [address] [id number] [place] [address] 72698- 9697 Aug, [facility] [address] [id number] [place] [address] 38917- 4176 Jul, [facility] [address] [place] [address] [id number] [place] [address] 40234- 9246 Jul, [facility] [address], [place] [address]- 8976 Jul, [facility] [address] [place] [id number] [place] [address] 95100- 1065 Jul, [facility] [address], [place] [address]- 8306 May, [facility] [address], [place] [address]- 0726 May, [facility] [address], [place] [address]- 8886 Apr, [facility] [address], [place] [address]- 5786 Apr, [facility] [address], [place] [address]- 0706 Mar, [facility] [address], [place] [address]- 6196 Mar, IMMUNIZATIONS No Known Immunizations SOCIAL HISTORY Never Assessed REASON FOR VISIT Lab (walk-in) PLAN OF CARE Activity Details Pending Test TSH VITAL SIGNS MEDICATIONS Unknown Medications RESULTS No Results PROCEDURES Procedure Date Ordered Result Body Site ASSAY THYROID STIM HORMONE Apr 01, 2018 VENIPUNCT, ROUTINE* Apr 01, 2018 INSTRUCTIONS MEDICATIONS ADMINISTERED No Known Medications MEDICAL (GENERAL) HISTORY Type Description Date Medical History esophageal stricture Medical History Esophageal reflux Medical History Calculus of kidney Medical History Cyst of left breast Surgical History gallbladder removal 2011 Surgical History hysterectomy 10/2013 Surgical History D&C 11/2012 Surgical History lithotripsy Surgical History esophageal stricture- stretching; Dr. Witt
--- OUTSIDE RECORDS SUMMARY | 2018-04-15 08:03 | XMS REPORT ---
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 Phone KIP ROJAS Unavailable PROBLEMS Type Condition ICD9-CM Code PTZ35-KE Code Onset Dates Condition Status SNOMED Code Problem Depression, unspecified depression type F32.9 Active 48914058 Problem Thyroiditis E06.9 Active 31154673 Problem Vitamin D deficiency E55.9 Active 47484219 Problem Gastroesophageal reflux disease, esophagitis presence not specified K21.9 Active 404041816 Problem Abnormal ultrasound of breast R92.8 Active 92555048578403075 Problem Family history of breast cancer in mother Z80.3 Active 902972927 Problem Mixed hyperlipidemia E78.2 Active 745265203 Problem Pharyngeal dysphagia R13.13 Active [id number] ALLERGIES No Information ENCOUNTERS Encounter Location Date Diagnosis [place] [address] [address]- [address]885 Feb, Thyroiditis E06.9 [facility] [place] [facility] [address] [place] [id number] [place] [address] 66209- 3181 Feb, Vitamin D deficiency E55.9 [facility] [place] [facility] [id number] [place] [address] 58413- 3918 Feb, [facility] [place] [facility] [id number] [place] [address] 11652- 5315 Feb, [facility] [place] [facility] [id number] [place] [address] 38427- 1589 Feb, Vitamin D deficiency E55.9 and Thyroid pain E07.89 [facility] [place] [facility] [address] [id number] [place] [address] 76091- 5410 Feb, Screening for breast cancer Z12.31 ; Weight loss counseling , encounter for Z71.3 ; Vitamin D deficiency E55.9 ; Screening for thyroid disorder Z13.29 ; Screening for diabetes mellitus Z13.1 ; Thyroid pain E07.89 ; Gastroesophageal reflux disease, esophagitis presence not specified K21.9 and Depression, unspecified depression type F32.9 [place] [address] [place] [id number] [place] [address] 93767- 6802 Dec, [address] [address]652- 0700 Dec, Left foot pain M79.[address] 15308- 2390 Jul, Pharyngeal dysphagia R13.[address] 01579- 0461 Jul, Mixed hyperlipidemia E78.[address] 28043- 8068 Jul, Hematuria R31.9 ; History of renal calculi Z87.442 ; Heartburn R12 ; Pharyngeal dysphagia R13.13 and General medical exam Z00.[address] 30824- 4572 Jun, Dysuria R30.0 ; Headache around the eyes R51 ; Hematuria R31.9 ; History of renal calculi Z87.442 ; Change in vision H53.9 ; Family history of breast cancer in mother Z80.3 and Abnormal ultrasound of breast R92.8 [place] [id number] [place] [address] 46825- 5871 Feb, Depression, unspecified depression type F32.[address] 25112- 9017 Feb, [address] 95387- 1007 Feb, Depression, unspecified depression type F32.9 [place] [address] [place] [address]- 7162 Feb, Hair loss L65.9 ; Fatigue, unspecified type R53.83 ; Depression, unspecified depression type F32.9 and History of vitamin D deficiency Z86.39 [facility] [address] [address] Nov, [facility] [place] [facility] [address] [address]- 7354 Jun, [facility] [place] [facility] [id number] [address]- 8584 May, Family history of breast cancer in mother V16.3 [place] [address] [place] [id number] [place] [address] 993408- 7656 Jan, Weight gain 783.1 [place] [address] [address]- 3044 Dec, Weight gain 783.1 [facility] [place] [facility] [address] [place] [address] 75248- 5145 Nov, Family history of breast cancer in mother V16.3 [place] [address] [address]- 6134 Nov, Family history of breast cancer V16.3 [facility] [place] [facility] [address] [address]- 5243 Nov, Family history of breast cancer in mother V16.3 and Weight gain 783.1 [facility] [place] [facility] [address] [address]- 4725 Nov, [place] [address] [place] [id number] [address]- 2884 Nov, [facility] [place] [facility] [address] [address]13 Nov, [facility] [place] [facility] [address] [address]- 1684 Nov, Heart burn 787.1 ; Arthralgia 719.40 ; Weight gain 783.1 and Fatigue 780.79 [facility] [place] [facility] [id number] [place] [address] 809966- 8513 Oct, Sinusitis 473.9 and Otalgia of right ear 388.70 [facility] [place] [facility] [address] [place] [id number] [place] [address] 24096- 3896 Aug, [facility] [place] [facility] [address] [place] [id number] [place] [address] 551378- 6601 Aug, [facility] [place] [facility] [id number] [place] [address] 43167- 0410 Jul, [facility] [place] [facility] [id number] [place] [address] 522199- 0934 Jul, [facility] [place] [facility] [address] [id number] [place] [address] 823815- 8532 Jul, [facility] [place] [facility] [id number] [place] [address] 36550- 8888 Jul, [facility] [place] [facility] [address] [id number] [place] [address] 457759- 6596 May, [facility] [place] [facility] [id number] [place] [address] 421332- 6003 May, [facility] [place] [facility] [id number] [place] [address] 98338- 3818 Apr, [facility] [place] [facility] [id number] [place] [address] 91654609- 6104 Apr, [facility] [place] [facility] [id number] [place] [address] 14441- 6748 Mar, [facility] [place] [facility] [address] [id number] [place] [address] 727481- 2267 Mar, IMMUNIZATIONS No Known Immunizations SOCIAL HISTORY Never Assessed REASON FOR VISIT Requests return call PLAN OF CARE VITAL SIGNS MEDICATIONS Unknown [...]
--- OUTSIDE RECORDS SUMMARY | 2018-04-15 08:03 | XMS REPORT ---
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 Role Phone KIP ROJAS Unavailable PROBLEMS Type Condition ICD9-CM Code [id number] Code Onset Dates Condition Status SNOMED Code Problem Depression, unspecified depression type F32.9 Active 94094476 Problem Thyroiditis E06.9 Active 85384047 Problem Vitamin D deficiency E55.9 Active 74265706 Problem Gastroesophageal reflux disease, esophagitis presence not specified K21.9 Active 681725387 Problem Abnormal ultrasound of breast R92.8 Active 84593221413665443 Problem Family history of breast cancer in mother Z80.3 Active 018772213 Problem Mixed hyperlipidemia E78.2 Active 586613962 Problem Pharyngeal dysphagia R13.13 Active [id number] ALLERGIES Substance Reaction Event Type Date Status Levofloxacin Unknown Drug Allergy Feb, Active ENCOUNTERS Encounter Location Date Diagnosis [facility] [id number] [place] [address] Feb, Thyroiditis E06.9 [facility] [id number] [place] [address]- [address] Feb, Vitamin D deficiency E55.9 [facility] [id number] [place] [address] Feb, [facility] [id number] [place] [address]- [address]84 Feb, [facility] [id number] [place] [address]- 4[address] Feb, Vitamin D deficiency E55.9 and Thyroid pain E07.89 [facility] [id number] [place] [address]179 Feb, Screening for breast cancer Z12.31 ; Weight loss counseling , encounter for Z71.3 ; Vitamin D deficiency E55.9 ; Screening for thyroid disorder Z13.29 ; Screening for diabetes mellitus Z13.1 ; Thyroid pain E07.89 ; Gastroesophageal reflux disease, esophagitis presence not specified K21.9 and Depression, unspecified depression type F32.9 [place] [address] [address] Dec, [place] [address] [address] Dec, Left foot pain M79.[address] [address] Jul, Pharyngeal dysphagia R13.[address] [address] Jul, Mixed hyperlipidemia E78.[address] [address]- [address] Jul, Hematuria R31.9 ; History of renal calculi Z87.442 ; Heartburn R12 ; Pharyngeal dysphagia R13.13 and General medical exam Z00.[address] [address] Jun, Dysuria R30.0 ; Headache around the eyes R51 ; Hematuria R31.9 ; History of renal calculi Z87.442 ; Change in vision H53.9 ; Family history of breast cancer in mother Z80.3 and Abnormal ultrasound of breast R92.[address] [address] Feb, Depression, unspecified depression type F32.9 [place] [address] [address] Feb, [address] [address] Feb, Depression, unspecified depression type F32.9 [facility] [address] [address] Feb, Hair loss L65.9 ; Fatigue, unspecified type R53.83 ; Depression, unspecified depression type F32.9 and History of vitamin D deficiency Z86.39 [facility] [address] [address] Nov, [facility] [id number] [address] Jun, [facility] [address] [address] May, Family history of breast cancer in mother V16.3 [facility] [address], [place] [address] Jan, Weight gain 783.1 [facility] [id number] [address] Dec, Weight gain 783.1 [facility] [address] [address] Nov, Family history of breast cancer in mother V16.3 [facility] [address] [place] [address] Nov, Family history of breast cancer V16.3 [facility] [address] [address] Nov, Family history of breast cancer in mother V16.3 and Weight gain 783.1 [facility] [address] [place] [address] Nov, [facility] [address] [place] [address] Nov, [facility] [id number] [address] Nov, [facility] [id number] [address] Nov, Heart burn 787.1 ; Arthralgia 719.40 ; Weight gain 783.1 and Fatigue 780.79 [facility] [id number] [place] [address]- [address] Oct, Sinusitis 473.9 and Otalgia of right ear 388.70 [facility] [id number] [place] [address] Aug, [facility] [id number] [place] [address]- [address] Aug, [facility] [id number] [place] [address] Jul, [facility] [id number] [place] [address] 21572- 64[address] Jul, [facility] [id number] [place] [address] 112[address]- [address] Jul, [facility] [id number] [place] [address]- 8997 Jul, [facility] [id number] [place] [address]23- 4399 May, [facility] [address], [place] [address] May, [facility] [address], [place] [address] Apr, [facility] [address] [address] Apr, [facility] [id number] [place] [address]- [address] Mar, [facility] [address], [place] [address] Mar, IMMUNIZATIONS No Known Immunizations SOCIAL HISTORY Never Assessed REASON FOR VISIT New provider visit--tcuppettRN PLAN OF CARE Activity Details Follow Up 3 months or as indicated by lab Reason: Pending Test THYROID ANTIBODIES Pending Test TSH w/ FREE T4 Pending Test CMP Pending Test VITAMIN D, 25-H Pending Test Mammogram, Bilateral Screening VITAL SIGNS Height 62 in 2018-03-14 Weight 203.8 lbs 2018-03-14 Temperature 98.0 degrees Fahrenheit 2018-03-14 Heart Rate 76 bpm 2018-03-14 Respiratory Rate 20 2018-03-14 BMI 37.27 kg/m2 2018-03-14 Blood pressure systolic 122 mmHg 2018-03-14 Blood pressure diastolic 74 mmHg 2018-03-14 MEDICATIONS Medication Instructions Dosage Frequency Start Date End Date Duration Status Phentermine HCl 15 mg Orally Once a day in am before meal 1 capsule Feb, Mar, 28 days Active Ranitidine HCl 150 MG Orally twice a day 1 tablet at bedtime 12h Feb, 30 day(s) Active RESULTS No Results PROCEDURES Procedure Date Ordered Result Body Site COMPREHEN METABOLIC PANEL Mar 14, 2018 ASSAY OF VITAMIN D Mar 14, 2018 ASSAY OF FREE THYROXINE Mar 14, 2018 ASSAY THYROID STIM HORMONE Mar 14, 2018 THYROGLOBULIN ANTIBODY Mar 14, 2018 MICROSOMAL ANTIBODY Mar 14, 2018 INSTRUCTIONS MEDICATIONS ADMINISTERED No Known Medications MEDICAL (GENERAL) HISTORY Type Description Date Medical History esophageal stricture Medical History Esophageal reflux Medical History Calculus of kidney Medical History Cyst of left breast Surgical History gallbladder removal 2011 Surgical History hysterectomy 10/2013 Surgical History D&C 11/2012 Surgical History lithotripsy Surgical History esophageal stricture- stretching; Dr. Witt
[2018-04-15] MEDS: LACTATED RINGERS 1,000 ML IV PRN ×2 (08:05→10:38)
[2018-04-15] MEDS ORDERED: SCOPOLAMINE 1.5 MG (TRANSDERM-SCOP) PATCH ONE (08:08)
--- NOTE | 2018-04-15 08:08 | Progress Note-Pre Operative ---
Pre-Operative Progress Note H&P Reviewed The H&P was reviewed, patient examined and no changes noted. Date Seen by Provider: Apr 15, 2018 Time Seen by Provider: 08:08 Date H&P Reviewed: Apr 15, 2018 Time H&P Reviewed: 08:08 Pre-Operative Diagnosis: LT URETERAL STONE AKIRA DOAN MD Apr 15, 2018 8:08 am
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
[2018-04-15] MEDS ORDERED: ONDANSETRON 4 MG/2 ML (SDV) Z0FRAN ONE ×2 (08:09→09:49)
[2018-04-15] MEDS ORDERED: FAMOTIDINE 20MG/2ML IV (PEPCID) ONE (08:09)
--- NOTE | 2018-04-15 08:39 | Diagnostic Imaging Report ---
INDICATION: Nephrolithiasis KUB 8:40 a.m. FINDINGS: There are two small calcifications projecting over the proximal left ureter, one measuring 3 mm the other 2 mm in diameter. Bowel gas pattern is normal. There is a moderate amount of stool throughout the colon. Gallbladder appears to be surgically absent. IMPRESSION: Two small calcifications projecting just inferomedial to the left kidney that could be ureteral calculi. Dictated by: Dictated on workstation # [id number]
[2018-04-15] MEDS ORDERED: SCOPOLAMINE 1.5 MG (TRANSDERM-SCOP) PATCH TD ONE (09:00)
[2018-04-15] MEDS ORDERED: ONDANSETRON 4 MG/2 ML (SDV) Z0FRAN IVP ONE (09:00)
[2018-04-15] MEDS ORDERED: FAMOTIDINE 20MG/2ML IV (PEPCID) IVP ONE (09:00)
[2018-04-15] MEDS ORDERED: LIDOCAINE PF 2% 5 ML (XYLOCAINE) VIAL ONE (09:49)
[2018-04-15] MEDS ORDERED: proPOfol 200 MG/20 ML (DIPRIVAN) VIAL IV ONE (09:49)
[2018-04-15] MEDS ORDERED: DEXAMETHASONE 10 MG/ML (DECADRON) 1 ML VIAL ONE (09:49)
[2018-04-15] MEDS ORDERED: SEVOFLURANE (ULTANE) 15 ML INHAL SOLN ONE ×3 (09:50→10:29)
[2018-04-15] MEDS ORDERED: fentaNYL INJECTION 100 MCG/2 ML AMP ONE ×2 (09:50→10:56)
[2018-04-15] MEDS ORDERED: MIDAZOLAM 2 MG/2 ML (VERSED) VIAL ONE (09:50)
--- NOTE | 2018-04-15 10:31 | Progress Note-Post Operative ---
Post-Operative Progess Note Surgeon (s)/Senior Principal Process Engineer (s) Surgeon AKIRA DOAN MD Senior Principal Process Engineer: NONE Pre-Operative Diagnosis LT PROXIMAL URETERAL STONE Post-Operative Diagnosis SAME Procedure & Operative Findings Date of Procedure 04/15/18 Procedure Performed/Findings LT ESWL Anesthesia Type GENERAL Estimated Blood Loss Estimated blood loss (mL): NONE Specimens/Packing Specimens Removed NONE Packing: NONE AKIRA DOAN MD Apr 15, 2018 10:31 am
--- NOTE | 2018-04-15 10:33 | Discharge Inst-Urology ---
Discharge Inst-Urology Discharge Medications New, Converted, or Re-newed RX: RX on Chart Patient Instructions/Follow Up Plan Please make appointment to been seen in office in 2 weeks. KUB prior to it KUB on way home Post ESWL instructions Increase oral fluids for 48 hours and then as needed. Diet and Activity as tolerated. If questions or concerns contact your physician Or seek help at emergency department. AKIRA DOAN MD Apr 15, 2018 10:33 am
[2018-04-15] MEDS ORDERED: KETOROLAC 30 MG/ML VIAL ONE (10:42)
[2018-04-15] MEDS ORDERED: FUROSEMIDE 40 MG/4 ML INJ (LASIX) ONE (10:42)
[2018-04-15] MEDS ORDERED: ONDANSETRON 4 MG/2 ML (SDV) Z0FRAN IVP PRN (11:00)
[2018-04-15] MEDS ORDERED: fentaNYL INJECTION 100 MCG/2 ML AMP IVP ONE (11:00)
--- NOTE | 2018-04-15 11:34 | Anesthesia-General Post-Op ---
General Patient Condition Mental Status/LOC: Same as Preop Cardiovascular: Satisfactory Nausea/Vomiting: Absent Respiratory: Satisfactory Pain: Controlled Complications: Absent Post Op Complications Complications None Follow Up Care/Instructions Patient Instructions None needed. Anesthesia/Patient Condition Patient Condition Patient is doing well, no complaints, stable vital signs, no apparent adverse anesthesia problems. No complications reported per nursing. YANG LEWIS CRNA Apr 15, 2018 11:34
[2018-04-15 11:41] VITALS: BP 138/87
[2018-04-15] MEDS ORDERED: NITR-65 PO (11:55)
[2018-04-15] MEDS ORDERED: TAMS0.4C98 PO (11:55)
[2018-04-15] MEDS ORDERED: HYDR-3870 PO (11:55)
[2018-04-15] MEDS ORDERED: HYDROcodone/APAP 5 MG/325 MG (LORTAB) TAB ONE (12:06)
[2018-04-15 12:10] VITALS: BP 138/81
[2018-04-15] MEDS ORDERED: HYDROcodone/APAP 5 MG/325 MG (LORTAB) TAB PO ONE (12:15)
[2018-04-15 12:40] VITALS: BP 120/75
[2018-04-15 13:28] VITALS: BP 120/75
--- NOTE | 2018-04-15 15:13 | Diagnostic Imaging Report ---
EXAMINATION: Supine abdomen at 01:47 p.m. INDICATION: Postop ESWL. FINDINGS: The abdomen exam performed earlier today at 08:40 a.m. noted two small (3 and 2 mm) calcifications projected over the proximal left ureter. Neither of those calcifications is well visualized on this exam. There may be a tiny remnant still present overlying the proximal left ureter. There may be a small calcific density near the ureterovesical junction on the left as well. No other pathological calcification is identified. IMPRESSION: There is only a tiny remnant of the calcifications overlying the proximal left ureter seen on the previous exam. There may be a very small calcific density near the ureterovesical junction on the left as well. Dictated by: Dictated on workstation # [id number]
--- NOTE | 2018-04-15 19:00 | OPERATIVE REPORT ---
DATE OF SERVICE: 04/15/2018 PREOPERATIVE DIAGNOSIS: Left proximal ureteral stone. POSTOPERATIVE DIAGNOSIS: Left proximal ureteral stone. OPERATION PERFORMED: Left ESWL. SURGEON: Reji Doan MD ANESTHESIA: General. COMPLICATIONS: None. DESCRIPTION OF PROCEDURE: Under satisfactory general anesthesia, the patient in supine position on the ESWL table, the left proximal ureteral stones were localized. Shocks were delivered at a kV of 6. A total of 1500 shocks were enough to completely fragment the stone that was not visualized any more. The patient received 40 mg of Lasix and 30 mg of Toradol IV at the end of the procedure. She tolerated the procedure and anesthesia well and was sent to recovery room in stable condition. CC: [facility] (distribution did not occur). Job ID: [id number] DocumentID: [id number] Dictated Date: 04/15/2018 10:41:29 Hospital Cleaner Date: 04/15/2018 19:00:38 Dictated By: REJI DOAN MD
== END 2018-04-15 13:28 | disposition home or self-care (01) ==
LOC: SDC 07:39
PROVIDERS: ATTEND Urology
DX: N20.1 Calculus of ureter (principal); K21.9 Gastro-esophageal reflux disease without esophagitis; E66.9 Obesity, unspecified; Z68.36 Body mass index [BMI] 36.0-36.9, adult; Z87.891 Personal history of nicotine dependence; Z79.899 Other long term (current) drug therapy
CPT/HCPCS: 74018; 87081

== ENCOUNTER → 2018-04-29 | Outpatient (CLI) | payer OTHER ==
[~2018-04-29] MED LIST changes: +HYDR-3870 PO; +NITR-65 PO; +TAMS0.4C98 PO
--- NOTE | 2018-04-29 18:23 | Diagnostic Imaging Report ---
INDICATION: Left-sided ureteral stone, follow-up. TIME OF EXAM: 02:10 p.m. Correlation is made with prior study from 04/15/2018. FINDINGS: Bowel gas pattern is nonobstructive. There are surgical clips in the gallbladder fossa. No definite calcifications along the course of the left ureter are seen on today's study. No definite radiopaque renal calculi are seen. IMPRESSION: No definite urinary tract calculi are seen on today's exam. Dictated by: Dictated on workstation # [id number]
== END ==
LOC: RAD 13:40
PROVIDERS: ATTEND Urology
DX: N20.1 Calculus of ureter (principal)
CPT/HCPCS: 74018

== ENCOUNTER 2018-05-04 09:41 | Outpatient (RCR) | payer OTHER ==
[2018-04-29 15:56] LABS: BUN/CREATININE RATIO 20; CALCIUM 10.4 MG/DL (8.5-10.1); CARBON DIOXIDE 26 MMOL/L (21-32); CHLORIDE 106 MMOL/L (98-107); GFR ESTIMATED > 60; GLUCOSE 80 MG/DL (70-105); PHOSPHORUS 3.5 MG/DL (2.3-4.7); SODIUM 144 MMOL/L (135-145); URIC ACID 5.8 MG/DL (2.6-7.2)
== END 2018-07-28 | disposition home or self-care (01) ==
LOC: LAB 09:41
PROVIDERS: ATTEND Urology
DX: N20.1 Calculus of ureter (principal)
CPT/HCPCS: 36415; 80048; 82140; 82340; 82507; 82570; 83735; 83945; 83970; 83986; 84100; 84105; 84133; 84300; 84392; 84550; 84560

== ENCOUNTER 2019-12-30 11:01 | Outpatient (RCR) | payer OTHER ==
[~2019-12-30 11:01] MED LIST changes: -MINO100C2 PO; +MINO100C5 PO; +RANI-613 PO; -RANI150T46 PO; -TAMS0.4C98 PO; +TMSL.4C PO
== END 2020-01-18 16:14 | disposition home or self-care (01) ==
PROVIDERS: ATTEND Orthopaedic Surgery
DX: S82.61XA Displaced fracture of lateral malleolus of right fibula, initial encounter for closed fracture (principal); K21.9 Gastro-esophageal reflux disease without esophagitis; Z91.040 Latex allergy status; Z90.49 Acquired absence of other specified parts of digestive tract; Z90.710 Acquired absence of both cervix and uterus; Z98.890 Other specified postprocedural states

== ENCOUNTER → 2020-09-12 | Outpatient (CLI) | payer OTHER ==
--- NOTE | 2020-09-12 13:46 | Diagnostic Imaging Report ---
INDICATION: Routine screening. Comparison is made with prior mammogram from 03/28/2018. 2-D and 3-D bilateral screening mammography was performed with CAD. Both breasts remain heterogeneously dense, limiting the sensitivity of mammography. Post-therapeutic changes in the retroareolar left breast are again noted with multiple surgical clips in place. No residual or recurrent mass is identified. There appears to be some ductal ectasia in the retroareolar right breast. No mass or malignant appearing microcalcifications are seen. Axillae are unremarkable. IMPRESSION: BI-RADS Category 2 No mammographic features suspicious for malignancy are identified. ACR BI-RADS Category 2: Benign findings. Result letter will be mailed to the patient. Note: At least 10% of breast cancer is not imaged by mammography. Dictated by: Dictated on workstation # [id number]
== END ==
LOC: RAD 08:44
PROVIDERS: ATTEND Nurse Practitioner Family
DX: Z12.31 Encounter for screening mammogram for malignant neoplasm of breast (principal); Z80.3 Family history of malignant neoplasm of breast
CPT/HCPCS: 77063; 77067

== ENCOUNTER → 2021-06-19 | Outpatient (REF) ==
[~2021-06-19] MED LIST changes: -PHEN37.53 PO; +PHEN37.58 PO; -SULF1TAB35 PO
--- NOTE | 2021-06-19 14:57 | Diagnostic Imaging Report ---
INDICATION: Pain in the forearm. TIME OF EXAM: 2:40 PM 2 views of the right forearm demonstrate the radius and ulna to be intact. Alignment at the elbow and wrist is normal. No fractures are seen. IMPRESSION: No acute bony abnormality is detected. Dictated by: Dictated on workstation # [id number]
--- NOTE | 2021-06-19 17:05 | Diagnostic Imaging Report ---
INDICATION: Injury with hand pain FINDINGS Three views of the right hand demonstrate no fracture, dislocation or acute-appearing articular irregularity. IMPRESSION: No acute appearing abnormality. Dictated by: Dictated on workstation # [id number]
== END ==
LOC: OCC 14:20
PROVIDERS: ATTEND Family Medicine
DX: M79.631 Pain in right forearm (principal); M79.641 Pain in right hand
CPT/HCPCS: 73090; 73130

== ENCOUNTER 2021-08-23 05:30 | Outpatient (CLI) | payer OTHER ==
[~2021-08-23] VITALS: Ht 160 cm; Wt 99.3 kg
[2021-08-23] MEDS ORDERED: PANT40TA52 PO (09:02)
== END 2021-08-23 13:10 ==
LOC: PREOP 05:30
PROVIDERS: ATTEND Surgery
DX: Z01.818 Encounter for other preprocedural examination (principal)

== ENCOUNTER 2021-08-28 07:35 | Day surgery (SDC) | payer OTHER ==
[~2021-08-28] VITALS: Ht 160 cm; Wt 96.6 kg
[~2021-08-28 07:35] MED LIST changes: +PANT40TA52 PO
[2021-08-28] MEDS ORDERED: LACTATED RINGERS 1,000 ML IV STA (07:39)
[2021-08-28] MEDS ORDERED: HURRICAINE EXT TUBE (BENZOCAINE) XX PRN (07:45)
[2021-08-28 07:50] VITALS: BP 117/61
[2021-08-28] MEDS ORDERED: LACTATED RINGERS 1,000 ML IV ONE (07:54)
--- NOTE | 2021-08-28 07:57 | Progress Note-Pre Operative ---
Pre-Operative Progress Note H&P Reviewed The H&P was reviewed, patient examined and no changes noted. Date Seen by Provider: Aug 28, 2021 Time Seen by Provider: 07:57 Date H&P Reviewed: Aug 28, 2021 Time H&P Reviewed: 07:57 Pre-Operative Diagnosis: epigastric pain, gastritis TANNA PACHECO DO Aug 28, 2021 07:57
[2021-08-28] MEDS ORDERED: PROPOFOL INJECTION 50 ML IV ONE (08:19)
[2021-08-28] MEDS ORDERED: MIDAZOLAM 2 MG/2 ML (VERSED) VIAL ONE (08:19)
--- NOTE | 2021-08-28 08:33 | Progress Note-Post Operative ---
Post-Operative Progess Note Surgeon (s)/System Planning Engineer (s) Surgeon TANNA PACHECO DO System Planning Engineer: ns Pre-Operative Diagnosis epigastric pain, gastritis Post-Operative Diagnosis gastritis Procedure & Operative Findings Date of Procedure 08/28/21 Procedure Performed/Findings egd c biopsies Anesthesia Type per general studies program chair Estimated Blood Loss Estimated blood loss (mL): none Specimens/Packing Specimens Removed antrum, ge TANNA PACHECO DO Aug 28, 2021 08:33
[2021-08-28 08:35] VITALS: BP 118/58
[2021-08-28] MEDS ORDERED: SUCR1TAB36 PO (08:37)
--- NOTE | 2021-08-28 08:38 | Discharge Inst-Simple/Standard ---
Discharge Inst-Standard Discharge Medications New, Converted or Re-Newed RX: Transmitted to Pharmacy Patient Instructions/Follow Up Plan of Care/Instructions/FU: 2 weeks karyn Activity as Tolerated: Yes Discharge Diet: Regular Diet TANNA PACHECO DO Aug 28, 2021 08:38
[2021-08-28 08:40] VITALS: BP 115/56
[2021-08-28 09:08] VITALS: BP 132/78
--- NOTE | 2021-08-28 09:22 | OPERATIVE REPORT ---
DATE OF SERVICE: 08/28/2021 PREOPERATIVE DIAGNOSES: Epigastric abdominal pain, gastritis. POSTOPERATIVE DIAGNOSIS: Gastritis. PROCEDURE: EGD with biopsy. SURGEON: Tanna Alexander DO ANESTHESIA: Per [employer]. ESTIMATED BLOOD LOSS: None. SPECIMENS: Antrum, GE junction. INDICATIONS: The patient is a 36-year-old female with epigastric abdominal pain and gastritis symptoms. She understands risks and benefits of procedure and wishes to proceed. Consent was signed in the chart. DESCRIPTION OF PROCEDURE: The patient was taken to the endoscopy suite, placed in left lateral recumbent position. Timeout was performed. Scope was inserted in mouth, down the esophagus, stomach and into the duodenum without difficulty. No polyps, masses or ulcerations within the duodenum. Scope was slowly retracted back into the stomach where it was further insufflated. No polyps, masses or ulcerations within the duodenum. Scope was slowly retracted back to stomach where it was further insufflated. Slight gastritis changes present. Biopsy of the antrum was obtained. No polyps, masses or ulcerations. Scope was retroflexed noting no other pathology. Scope was returned to its normal position, slowly withdrawn to distal esophagus. Biopsy of the GE junction was obtained. No polyps, masses or ulcerations. Scope was slowly retracted back until completely removed. The patient tolerated procedure well without any complications. She was taken to recovery room in stable condition. RECOMMENDATIONS: The patient will continue on Protonix. We will add Carafate 1 gram four times a day. We will follow up in two to three weeks. Any issues before that be seen at that time. Job ID: [id number] DocumentID: [id number] Dictated Date: 08/28/2021 08:49:14 Assistant Brand Manager Date: 08/28/2021 09:21:56 Dictated By: TANNA ALEXANDER DO
--- NOTE | 2021-08-28 10:47 | Anesthesia-General Post-Op ---
MAC Patient Condition Mental Status/LOC: Same as Preop Cardiovascular: Satisfactory Nausea/Vomiting: Absent Respiratory: Satisfactory Pain: Controlled Complications: Absent Post Op Complications Complications None Follow Up Care/Instructions Patient Instructions None needed. Anesthesiology Discharge Order Discharge Order Patient is doing well, no complaints, stable vital signs, no apparent adverse anesthesia problems. No complications reported per nursing. JACOB ORDOÑEZ CRNA Aug 28, 2021 10:47
== END 2021-08-28 09:15 | disposition home or self-care (01) ==
LOC: ENDO 07:35
PROVIDERS: ATTEND Surgery
DX: K29.50 Unspecified chronic gastritis without bleeding (principal); Z87.891 Personal history of nicotine dependence; Z79.899 Other long term (current) drug therapy; Z90.49 Acquired absence of other specified parts of digestive tract

== ENCOUNTER 2021-10-11 10:05 | Emergency (ER) | payer OTHER ==
[~2021-10-11] VITALS: Ht 160 cm; Wt 95.2 kg
[~2021-10-11 10:05] MED LIST changes: +SUCR1TAB36 PO
[2021-10-11] MEDS ORDERED: ONDANSETRON 4 MG (ZOFRAN) ORAL DISSOLVE TAB PO STA (10:53)
--- NOTE | 2021-10-11 10:54 | ED General ---
General Chief Complaint: Chest Pain Stated Complaint: CP,N/V Nursing Triage Note: PT ARRIVES TO ER VIA W/C. PT C/O MID-STERNAL CHEST PAIN, DESCRIBES A BURNING SENSATION, RADIATES TO UPPER BACK, ALSO REPORTS N/V. PT HAS A HX OF GASTRITIS, TAKENS PROTONIX, PEPCID, AND CARAFATE. Source of Information: Patient Exam Limitations: No Limitations History of Present Illness Date Seen by Provider: October 11, 2021 Time Seen by Provider: 10:47 Initial Comments Patient is a 36-year-old female who presents to the emergency room today with a chief complaint of severe acid reflux radiating into her back. Patient states that she has been diagnosed with gastroesophageal reflux disease, she has had a EGD by Dr. Alexander. She is scheduled for a CAT scan next week. She states she is on both Pepcid and Prilosec as well as Carafate. She states every time she eats she vomits. She is also had previous cholecystectomy. Patient states her pain is much worse anytime she eats. It is a burning discomfort up from her epigastric region into her chest. She denies shortness of breath. She is a little bit nauseated now. No fevers, chills, productive cough. Nothing makes the pain any worse once it starts other than laying flat, nothing really makes it any better. She has no known personal history of coronary artery disease and no family history of coronary artery disease. She does not smoke. No history of hypertension. She is not short of breath. All other review of systems reviewed and negative except as stated Timing/Duration: 1-3 Hours Severity: Severe Modifying Factors: worse with Eating Associated Systoms: Chest Pain Allergies and Home Medications Allergies Coded Allergies: levofloxacin (Unverified Allergy, Intermediate, 08/26/13) RASH AND ITCHING morphine (Unverified Adverse Reaction, Mild, NAUSEA, 08/26/13) Patient Home Medication List Home Medication List Reviewed: Yes Pantoprazole Sodium (Pantoprazole Sodium) 40 Mg Tablet., 40 MG PO DAILY, (Reported) Entered as Reported by: NANCIE AMEZCUA on 08/23/21 0902 Sucralfate (Carafate) 1 Gm Tablet, 1 GM PO QID Prescribed by: TANNA ALEXANDER on 08/28/21 0837 Review of Systems Review of Systems Constitutional: see HPI EENTM: no symptoms reported Respiratory: no symptoms reported Cardiovascular: chest pain Gastrointestinal: heartburn Genitourinary: no symptoms reported Musculoskeletal: back pain Skin: no symptoms reported All Other Systems Reviewed Negative Unless Noted: Yes Past Fzacadj-Ageccs-Mwxocw Hx Patient Social History Tobacco Use?: No Use of E-Cig and/or Vaping dev: No Substance use?: No Alcohol Use?: No Pt feels they are or have been: No Immunizations Up To Date First/Initial COVID19 Vaccinat: RECEIVED, UNK WHEN Second COVID19 Vaccination Orestes: RECEIVED, UNK WHEN Third COVID19 Vaccination Date: NO COVID19 Vaccine 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: [employer] Seasonal Allergies Seasonal Allergies: Yes Past Medical History Surgeries: Yes (D&C X2, DXLS, RENAL STONE REMOVAL, LT BREAST BIOPSY) Breast, Gallbladder, Hysterectomy Respiratory: No Cardiac: No Neurological: No (FEBRILE SEIZURE X1) Reproductive Disorders: No Female Reproductive Disorders: Denies, Endometriosis, 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 0.0oz. [id number]; 37.00 BMI Method:Stated General Appearance: No Apparent Distress, WD/WN, Anxious Eyes: Bilateral Eye Normal Inspection, Bilateral Eye PERRL, Bilateral Eye EOMI HEENT: PERRL/EOMI Neck: Normal Inspection Respiratory: Lungs Clear, Normal Breath Sounds, No Accessory Muscle Use, No Respiratory Distress Cardiovascular: Regular Rate, Rhythm, Normal Peripheral Pulses Gastrointestinal: Soft, Tenderness (epigastric discomfort) Back: Normal Inspection, No Vertebral Tenderness; No Vertebral Tenderness Extremity: Normal Inspection, Normal Range of Motion, Non Tender, No Calf Tenderness Neurologic/Psychiatric: Alert, Oriented x3, No Motor/Sensory Deficits, Normal Mood/Affect, hr associate II-XII Norm as Tested Progress/Results/Core Measures Suspected Sepsis SIRS Temperature: Pulse: 90 Respiratory Rate: 18 Blood Pressure 151 /99 Mean: 116 Results/Orders My Orders Orders - NATALIO FERNANDO MD Ekg Tracing (10/11/21 10:10) Ondansetron Oral Dissolve Tab (Zofran (10/11/21 10:53) Lidocaine 2% Viscous 15 Ml (Xylocaine Vi (10/11/21 11:00) Sucralfate Tablet (Carafate Tablet) (10/11/21 11:00) Antacid Suspension (Mylanta Suspension (10/11/21 11:00) Medications Given in ED Current Medications Medications Dose Ordered Sig/Lauren Route Start Time Stop Time Status Last Admin Dose Admin Al Hydrox/Mg Hydrox/Simethicone 30 ml ONCE ONCE PO 10/11/21 11:00 10/11/21 11:01 DC 10/11/21 11:01 30 ML Lidocaine HCl 5 ml ONCE ONCE PO 10/11/21 11:00 10/11/21 11:01 DC 10/11/21 11:01 5 ML Sucralfate 1 gm ONCE ONCE PO 10/11/21 11:00 10/11/21 11:01 DC 10/11/21 10:59 1 GM Vital Signs/I&O 10/11/21 10:09 Temp 36.4 Pulse 90 Resp 18 B/P (MAP) 151/99 (116) Pulse Ox 97 O2 Delivery Room Air Capillary Refill : Blood Pressure Mean: 116 Progress Note : Time: 11:39 Progress Note Patient reevaluated after medications, she states she feels much better although it does still feel like "something is stuck" mid chest it is not painful. I have recommended that she crush her Carafate and perhaps take it with a tablespoon of Maalox and at least 30 minutes before meals. I have recommended that she keep her follow-up appointment with Dr. Alexander as well as her appointment for her CAT scan. Return precautions have been discussed. She verbalized understanding. No clinical or objective findings for concern of acute coronary syndrome. Her vital signs are stable. All questions are sought and answered. Patient is stable for discharge. ECG Initial ECG Impression Date: October 11, 2021 Initial ECG Impression Time: 10:15 Initial ECG Rate: 92 Initial ECG Intervals: Normal Initial ECG Impression: Normal, Nonspecific Changes (anterior leads) Departure Impression Primary Impression: Gastroesophageal reflux disease Qualified Codes: K21.9 - Gastro-esophageal reflux disease without esophagitis Disposition: 01 HOME, SELF-CARE Condition: Improved Departure-Patient Inst. Decision time for Depature: 11:41 Referrals: TANNA ALEXANDER,LOCAL PHYSICIAN (PCP) Primary Care Physician Patient Instructions: Acid Reflux, Adult and Adolescent ED Add. Discharge Instructions: Continue to take your acid reducing medications as directed. You can crush your Carafate tablets and put them in a tablespoon/15 mL of Maalox and take that at least 30 minutes before meals up to 4 times daily. Do not eat after 6:30 PM in the evening. Avoid acidic foods and caffeinated beverages as much as possible. I have given you a prescription for nausea medication, Zofran which you can take every 8 hours for nausea. Please come back to the emergency room if you have worsening chest discomfort especially with nausea, sweating, shortness of breath or any other emergent concerning symptoms. Scripts Ondansetron (Ondansetron Odt) 4 Mg Tab.rapdis 4 MG PO Q8H PRN for nausea, #20 TAB Prov: NATALIO FERNANDO MD 10/11/21 Copy Copies To 1: TANNA ALEXANDER KATHRYN M MD October 11, 2021 10:54
[2021-10-11] MEDS ORDERED: ANTACID SUSP 30 ML UDC (MYLANTA) PO ONE (11:00)
[2021-10-11] MEDS ORDERED: SUCRALFATE 1 GM (CARAFATE) TAB PO ONE (11:00)
[2021-10-11] MEDS ORDERED: LIDOCAINE 2% VISCOUS 15 ML UDC PO ONE (11:00)
[2021-10-11] MEDS ORDERED: ONDA4TAB11 PO (11:43)
[2021-10-11 11:47] VITALS: BP 113/87
== END 2021-10-11 11:47 | disposition home or self-care (01) ==
LOC: EDUNIT# 10:05 → ER 10:07
DX: K21.9 Gastro-esophageal reflux disease without esophagitis (principal); Z87.442 Personal history of urinary calculi; Z90.710 Acquired absence of both cervix and uterus; Z79.899 Other long term (current) drug therapy
CPT/HCPCS: 93005

== ENCOUNTER → 2021-10-18 | Outpatient (CLI) | payer OTHER ==
[~2021-10-18] MED LIST changes: +CATHETER FLUSH 10 ML SYR IV PRN; +HOLD METFORMIN - RECEIVED CONTRAST 20 ML VIAL IV SCH; +IOHEXOL 350 MG/ML 100 ML (OMNIPAQUE 350) VIAL IV ONE; +NS 100 ML (IVPB) BAG IV ONE; +ONDA4TAB11 PO
--- NOTE | 2021-10-18 09:47 | Diagnostic Imaging Report ---
PROCEDURE: CT abdomen and pelvis with contrast. TECHNIQUE: Multiple contiguous axial images were obtained through the abdomen and pelvis after administration of intravenous contrast. Auto Exposure Controls were utilized during the CT exam to meet ALARA standards for radiation dose reduction. All CT scans use one or more of the following dose optimizing techniques: automated exposure control, MA and/or KvP adjustment based on patient size and exam type or iterative reconstruction. INDICATION: Upper abdominal pain and acid reflux. Hysterectomy and appendectomy. EXAMINATION: CT abdomen and pelvis with contrast 10/18/2021. COMPARISON: 12/01/2015 FINDINGS: The visualized lung bases appear clear. There is diffuse fatty infiltration throughout the liver with no focal acute abnormality appreciated. There is evidence of previous cholecystectomy. Spleen is normal. Adrenal glands and pancreas unremarkable. There are multiple bilateral renal cystic changes subcentimeter nature too small to characterize. The appendix is absent with clips in the right lower quadrant. There is evidence of previous hysterectomy. There is no ascites or free air. There is no lymphadenopathy. There is a nonobstructive bowel gas pattern. There is no acute osseous abnormality. IMPRESSION: 1. Postoperative changes as above. 2. Tiny cystic changes in the kidneys too small for characterization. 3. Hepatic steatosis. Dictated by: Dictated on workstation # [id number]
== END ==
LOC: RAD 08:15
PROVIDERS: ATTEND Surgery
DX: K76.0 Fatty (change of) liver, not elsewhere classified (principal)
CPT/HCPCS: 74177

== ENCOUNTER 2022-03-30 20:40 | Emergency (ER) | payer OTHER ==
[~2022-03-30] VITALS: Ht 160 cm; Wt 95.0 kg
[~2022-03-30 20:40] MED LIST changes: -CATHETER FLUSH 10 ML SYR IV PRN; -HOLD METFORMIN - RECEIVED CONTRAST 20 ML VIAL IV SCH; -IOHEXOL 350 MG/ML 100 ML (OMNIPAQUE 350) VIAL IV ONE; -NS 100 ML (IVPB) BAG IV ONE
[2022-03-30] MEDS ORDERED: KETOROLAC 30 MG/ML VIAL IVP STA (21:07)
[2022-03-30 21:15] LABS: BILIRUBIN,URINE NEGATIVE (NEGATIVE); CLARITY,URINE CLEAR; COLOR,URINE YELLOW; GLUCOSE, URINE (UA) NEGATIVE (NEGATIVE); KETONES,URINE NEGATIVE (NEGATIVE); LEUKOCYTE ESTERASE ,URINE NEGATIVE (NEGATIVE); NITRITE,URINE NEGATIVE (NEGATIVE); PROTEIN,URINE NEGATIVE (NEGATIVE)
[2022-03-30] MEDS ORDERED: ONDANSETRON 4 MG/2 ML (SDV) Z0FRAN IVP ONE (21:15)
[2022-03-30] MEDS ORDERED: LACTATED RINGERS 1,000 ML IV ONE (21:15)
[2022-03-30 21:20] LABS: BASOPHILS % (AUTO) 0 % (0-10); EOSINOPHILS # (AUTO) 0.2 10^3/uL (0.0-0.3); EOSINOPHILS % (AUTO) 2 % (0-10); HEMATOCRIT 41 % (35-52); HEMOGLOBIN 13.5 g/dL (11.5-16.0); LYMPHOCYTES # (AUTO) 3.5 10^3/uL (1.0-4.0); LYMPHOCYTES % (AUTO) 36 % (12-44); MEAN CORPUSCULAR HEMOGLOBIN 30 pg (25-34); MEAN CORPUSCULAR HGB CONC 33 g/dL (32-36); MEAN CORPUSCULAR VOLUME 88 fL (80-99); MEAN PLATELET VOLUME 10.7 fL (9.0-12.2); MONOCYTES # (AUTO) 0.7 10^3/uL (0.0-1.0); MONOCYTES % (AUTO) 7 % (0-12); NEUTROPHILS # (AUTO) 5.3 10^3/uL (1.8-7.8); NEUTROPHILS % (AUTO) 54 % (42-75); PLATELET COUNT 281 10^3/uL (130-400); WHITE BLOOD COUNT 9.8 10^3/uL (4.3-11.0)
[2022-03-30 21:29] LABS: BACTERIA,URINE TRACE /HPF; RBC,URINE 0-2 /HPF; SQUAMOUS EPITHELIAL CELL,UR 0-2 /HPF; WBC,URINE 0-2 /HPF
[2022-03-30 21:30] LABS: ALANINE AMINOTRANSFERASE 33 U/L (0-55); ALBUMIN 4.6 GM/DL (3.2-4.5); ALKALINE PHOSPHATASE 95 U/L (40-136); AMYLASE 57 U/L (25-125); BILIRUBIN,TOTAL 0.2 MG/DL (0.1-1.0); BUN/CREATININE RATIO 16; CALCIUM 9.8 MG/DL (8.5-10.1); CARBON DIOXIDE 23 MMOL/L (21-32); CHLORIDE 104 MMOL/L (98-107); CREATININE SERUM 0.83 MG/DL (0.60-1.30); GFR ESTIMATED 94; GLUCOSE 92 MG/DL (70-105); LIPASE 25 U/L (8-78); POTASSIUM 3.7 MMOL/L (3.6-5.0); SODIUM 141 MMOL/L (135-145); TOTAL PROTEIN 7.7 GM/DL (6.4-8.2)
--- NOTE | 2022-03-30 21:51 | Diagnostic Imaging Report ---
INDICATION: Abdominal pain. EXAMINATION: Supine image of the abdomen was obtained. COMPARISON: Study of 04/29/2018. FINDINGS: Bowel gas pattern is unremarkable. There is no evidence of free intraperitoneal gas or pneumatosis. No pathologic abdominal calcification is seen. IMPRESSION: No acute abnormality. Dictated by: Dictated on workstation # [id number]
--- NOTE | 2022-03-30 21:52 | Diagnostic Imaging Report ---
PROCEDURE: CT urinary tract, rule out kidney stone. TECHNIQUE: Multiple contiguous axial images were obtained through the abdomen and pelvis without the use of intravenous contrast. Auto Exposure Controls were utilized during the CT exam to meet ALARA standards for radiation dose reduction. INDICATION: Flank pain. COMPARISON: 10/18/2021. FINDINGS: Unenhanced images of liver and spleen are unremarkable. Gallbladder is surgically absent. There is no evidence of pancreatic or adrenal gland abnormality. Minimal nonobstructing stone is seen in the lower pole of the left kidney. Kidneys are otherwise unremarkable. There is no evidence of ureteric stone or dilatation. There is no evidence of bladder calcification. No focal inflammation or organized fluid collection is seen. IMPRESSION: Minimal nonobstructing left lower pole renal calculus. Otherwise, no acute abnormality is seen. Dictated by: Dictated on workstation # [id number]
[2022-03-30] MEDS ORDERED: RX-CYCLOBENZAPRINE 10 MG (FLEXERIL) TAB PPK#3 PO STA (22:33)
[2022-03-30] MEDS ORDERED: RX-NAPROXEN (NAPROSYN) 250 MG TAB PPK#4 PO STA (22:33)
[2022-03-30] MEDS ORDERED: CYCL10TA25 PO (22:36)
[2022-03-30] MEDS ORDERED: NAPR500T8 PO (22:36)
--- NOTE | 2022-03-30 22:36 | ED Abdominal Pain ---
General Chief Complaint: Abdominal/GI Problems Stated Complaint: R SIDE UPPER ABD PAIN,UPPER BACK PAIN Nursing Triage Note: PT AMB TO ED BY POV WITH C/O RUQ PAIN BEGINNING SATURDAY, WORSE TONIGHT. ALSO C/O BURNING WITH URINATION SINCE YESTERDAY AND NAUSEA. PT HAS HX OF KIDNEY STONES AND REPORTS THIS PAIN FEELS SIMILAR. Allergies and Home Medications Allergies Coded Allergies: levofloxacin (Unverified Allergy, Intermediate, 08/26/13) RASH AND ITCHING morphine (Unverified Adverse Reaction, Mild, NAUSEA, 08/26/13) Patient Home Medication List Ondansetron (Ondansetron Odt) 4 Mg Tab.rapdis, 4 MG PO Q8H PRN for nausea Prescribed by: NATALIO FERNANDO on 10/11/21 1143 Pantoprazole Sodium (Pantoprazole Sodium) 40 Mg Tablet.dr, 40 MG PO DAILY, (Reported) Entered as Reported by: NANCIE AMEZCUA on 08/23/21 0902 Sucralfate (Carafate) 1 Gm Tablet, 1 GM PO QID Prescribed by: TANNA PACHECO on 08/28/21 0837 Past Abmohgw-Mkqsfj-Irlzid Hx Patient Social History Tobacco Use?: No Use of E-Cig and/or Vaping dev: No Substance use?: No Alcohol Use?: No Pt feels they are or have been: No Immunizations Up To Date Influenza Vaccine Up-to-Date: Yes; Up-to-Date First/Initial COVID19 Vaccinat: RECEIVED, UNK WHEN Second COVID19 Vaccination Orestes: RECEIVED, UNK WHEN Third COVID19 Vaccination Date: RECEIVED, UNK WHEN COVID19 Vaccine Bus Cleaner: [facility] Seasonal Allergies Seasonal Allergies: Yes Past Medical History Surgery/Hospitalization HX: HERMELINDA, HYST Surgeries: Yes (D&C X2, DXLS, RENAL STONE REMOVAL, LT BREAST BIOPSY) Breast, Gallbladder, Hysterectomy Respiratory: No Cardiac: No Neurological: No (FEBRILE SEIZURE X1) Reproductive Disorders: No Female Reproductive Disorders: Denies, Endometriosis, Ovarian Cyst [employer]ED [employer] History: Hysterectomy HIV/AIDS: No Genitourinary: Yes Kidney Stones, UTI-Chronic Gastrointestinal: Yes Gastroesophageal Reflux Musculoskeletal: No Endocrine: No Cancer: No Psychosocial: No Integumentary: No Blood Disorders: No Adverse Reaction/Blood Tranf: No Family Medical History Cancer 19 MOTHER (BREAST ) Family history: Hypertension G8 BROTHER No Pertinent Family Hx Physical Exam Vital Signs Vital Signs - First Documented 03/30/22 20:58 Temp 36.6 Pulse 82 Resp 18 B/P (MAP) 139/88 (105) Pulse Ox 97 O2 Delivery Room Air Capillary Refill : Less Than 3 Seconds Height/Weight/BMI Height: 5'2.00" Weight: 200lbs. 0.0oz. 90.783308uv; 37.00 BMI Method:Stated Progress/Results/Core Measures Results/Orders Lab Results Laboratory Tests Test 03/30/22 21:08 Range/Units White Blood Count 9.8 4.3-11.0 10^3/uL Red Blood Count 4.58 3.80-5.11 10^6/uL Hemoglobin 13.5 11.5-16.0 g/dL Hematocrit 41 35-52 % Mean Corpuscular Volume 88 80-99 fL Mean Corpuscular Hemoglobin 30 25-34 pg Mean Corpuscular Hemoglobin Concent 33 32-36 g/dL Red Cell Distribution Width 12.8 10.0-14.5 % Platelet Count 281 130-400 10^3/uL Mean Platelet Volume 10.7 9.0-12.2 fL Immature Granulocyte % (Auto) 0 % Neutrophils (%) (Auto) 54 42-75 % Lymphocytes (%) (Auto) 36 12-44 % Monocytes (%) (Auto) 7 0-12 % Eosinophils (%) (Auto) 2 0-10 % Basophils (%) (Auto) 0 0-10 % Neutrophils # (Auto) 5.3 1.8-7.8 10^3/uL Lymphocytes # (Auto) 3.5 1.0-4.0 10^3/uL Monocytes # (Auto) 0.7 0.0-1.0 10^3/uL Eosinophils # (Auto) 0.2 0.0-0.3 10^3/uL Basophils # (Auto) 0.0 0.0-0.1 10^3/uL Immature Granulocyte # (Auto) 0.0 0.0-0.1 10^3/uL Urine Color YELLOW Urine Clarity CLEAR Urine pH 6.0 5-9 Urine Specific [place] >=1.030 1.016-1.022 Urine Protein NEGATIVE NEGATIVE Urine Glucose (UA) NEGATIVE NEGATIVE Urine Ketones NEGATIVE NEGATIVE Urine Nitrite NEGATIVE NEGATIVE Urine Bilirubin NEGATIVE NEGATIVE Urine Urobilinogen 0.2 < = 1.0 MG/DL Urine Leukocyte Esterase NEGATIVE NEGATIVE Urine RBC (Auto) NEGATIVE NEGATIVE Urine RBC 0-2 /HPF Urine WBC 0-2 /HPF Urine Squamous Epithelial Cells 0-2 /HPF Urine Crystals NONE /LPF Urine Bacteria TRACE /HPF Urine Casts NONE /LPF Urine Mucus SMALL H /LPF Urine Culture Indicated NO Sodium Level 141 135-145 MMOL/L Potassium Level 3.7 3.6-5.0 MMOL/L Chloride Level 104 98-107 MMOL/L Carbon Dioxide Level 23 21-32 MMOL/L Anion Gap 14 5-14 MMOL/L Blood Urea Nitrogen 13 7-18 MG/DL Creatinine 0.83 0.60-1.30 MG/DL Estimat Glomerular Filtration Rate 94 BUN/Creatinine Ratio 16 Glucose Level 92 70-105 MG/DL Calcium Level 9.8 8.5-10.1 MG/DL Corrected Calcium 8.5-10.1 MG/DL Total Bilirubin 0.2 0.1-1.0 MG/DL Aspartate Amino Transf (AST/SGOT) 20 5-34 U/L Alanine Aminotransferase (ALT/SGPT) 33 0-55 U/L Alkaline Phosphatase 95 40-136 U/L Total Protein 7.7 6.4-8.2 GM/DL Albumin 4.6 H 3.2-4.5 GM/DL Amylase Level 57 25-125 U/L Lipase 25 8-78 U/L My Orders Orders - VJ DE LEON DO Ed Iv/Invasive Line Start (03/30/22 20:59) Monitor-Rhythm Ecg Trace Only (03/30/22 20:59) Amylase (03/30/22 20:59) Cbc With Automated Diff (03/30/22 20:59) Comprehensive Metabolic Panel (03/30/22 20:59) Lipase (03/30/22 20:59) Ua Culture If Indicated (03/30/22 20:59) Ct Abd/Pelvis Wo(Kidney Stone) (03/30/22 21:07) Abdomen/Kub 1view (03/30/22 21:07) Ed Iv/Invasive Line Start (03/30/22 21:07) Lactated Ringers (Lr 1000 Ml Iv Solution (03/30/22 21:15) Ondansetron Injection (Zofran Injectio (03/30/22 21:15) Ketorolac Injection (Toradol Injection) (03/30/22 21:07) Medications Given in ED Current Medications Medications Dose Ordered Sig/Lauren Route Start Time Stop Time Status Last Admin Dose Admin Lactated Ringer's 1,000 ml @ 0 mls/hr Q0M ONCE IV 03/30/22 21:15 03/30/22 21:16 DC 03/30/22 21:19 0 MLS/HR Ondansetron HCl 4 mg ONCE ONCE IVP 03/30/22 21:15 03/30/22 21:16 DC 03/30/22 21:19 4 MG Vital Signs/I&O 03/30/22 20:58 Temp 36.6 Pulse 82 Resp 18 B/P (MAP) 139/88 (105) Pulse Ox 97 O2 Delivery Room Air Blood Pressure Mean: 105 Departure Impression Primary Impression: Rib pain on right side Disposition: HOME, SELF-CARE Condition: Improved Departure-Patient Inst. Decision time for Depature: 22:30 Referrals: JOSÉ MANUEL HUANG APRN (PCP) Primary Care Physician Patient Instructions: Abdominal Muscle Strain ED, Costochondritis (DC) Add. Discharge Instructions: ALTERNATE ICE AND HEAT TO AREA AT 20 MINUTE INTERVALS FOLLOW UP WITH YOUR DR IN 2-3 DAYS IF NO BETTER, RETURN TO ER IF WORSE All discharge instructions reviewed with patient and/or family. Voiced understanding. Scripts Naproxen (Naproxen) 500 Mg Tablet.dr 500 MG PO BID, #20 TAB Prov: VJ DE LEON DO 03/30/22 Cyclobenzaprine HCl (Cyclobenzaprine HCl) 10 Mg Tablet 10 MG PO Q8H PRN for SPASMS, #15 TAB 0 Refills Prov: VJ DE LEON DO 03/30/22 JV DE LEON DO Mar 30, 2022 22:36
[2022-03-30 22:58] VITALS: BP 123/66
== END 2022-03-30 22:56 | disposition home or self-care (01) ==
LOC: EDUNIT# 20:40 → ER 20:42
DX: R07.81 Pleurodynia (principal); Z88.6 Allergy status to analgesic agent
CPT/HCPCS: 36415; 74018; 74176; 80053; 81000; 82150; 83690; 85025; 93041